=== PATIENT | female | born 1955 | race Hispanic/Latino ===

== ENCOUNTER 2019-10-24 14:59 | Inpatient (IN) | payer OTHER ==
[~2019-10-24] VITALS: Ht 162.6 cm; Wt 61.7 kg
[2019-10-24 15:26] LABS: BASOPHILS % (AUTO) 1.3 % (0.0-5.0); EOSINOPHILS % (AUTO) 3.7 % (0.0-8.0); HEMATOCRIT 39.3 % (36-48); LYMPHOCYTES % (AUTO) 18.4 % (21.0-51.0); MEAN CORPUSCULAR HEMOGLOBIN 32.8 pg (27.0-33.0); MEAN CORPUSCULAR HGB CONC 33.3 g/dL (32.0-36.0); MEAN CORPUSCULAR VOLUME 98.5 fL (79-99); MONOCYTES % (AUTO) 9.2 % (3.0-13.0); NEUTROPHILS % (AUTO) 67.2 % (40.0-77.0); PLATELET COUNT (AUTO) 163 K/uL (130-400); RED BLOOD CELL COUNT(AUTO) 3.99 MIL/uL (4.00-5.50); RED CELL DISTRIBUTION WIDTH 16.7 % (11.0-15.5); WHITE BLOOD COUNT (AUTO) 5.4 K/uL (4.8-10.8)
[2019-10-24 15:41] LABS: CREATININE 1.6 mg/dL (0.5-1.5); POTASSIUM 3.3 mmol/L (3.5-5.1)
[2019-10-24 15:44] LABS: INR 1.12 (0.85-1.15); PARTIAL THROMBOPLASTIN TIME 23.8 SEC (26.3-35.5); PROTHROMBIN TIME 11.7 SEC (9.6-11.6)
[2019-10-24 15:45] LABS: ALBUMIN 2.8 g/dL (3.5-5.0); BILIRUBIN,TOTAL 1.7 mg/dL (0.2-1.0); TOTAL PROTEIN, SERUM 6.2 g/dL (6.0-8.3)
[2019-10-24] MEDS ORDERED: FUROSEMIDE 10 MG/ML 4ML VIAL ONE (16:15)
[2019-10-24] MEDS ORDERED: POTASSIUM CHLORIDE 20 MEQ ERTAB PO ONE (16:56)
[2019-10-24] MEDS ORDERED: HYDRALAZINE HCL 20 MG/ML VIAL IV PRN (19:15)
[2019-10-24] MEDS ORDERED: ACETAMINOPHEN 325 MG TAB PO PRN ×2 (19:15)
[2019-10-24] MEDS ORDERED: ONDANSETRON HCL 4 MG/2 ML VIAL IV PRN (19:15)
[2019-10-24] MEDS ORDERED: FUROSEMIDE 10 MG/ML 2ML VIAL IVP SCH (21:00)
[2019-10-24] MEDS ORDERED: FAMOTIDINE/PF 20 MG/2 ML VIAL IV ONE (21:35)
[2019-10-24 21:57] LABS: TROPONIN I 0.11 ng/mL (0.00-0.06)
[2019-10-25 04:02] LABS: BASOPHILS % (AUTO) 1.4 % (0.0-5.0); EOSINOPHILS % (AUTO) 3.6 % (0.0-8.0); LYMPHOCYTES % (AUTO) 17.3 % (21.0-51.0); MEAN CORPUSCULAR HEMOGLOBIN 33.3 pg (27.0-33.0); MEAN CORPUSCULAR HGB CONC 34.1 g/dL (32.0-36.0); MEAN CORPUSCULAR VOLUME 97.5 fL (79-99); MONOCYTES % (AUTO) 9.6 % (3.0-13.0); NEUTROPHILS % (AUTO) 67.9 % (40.0-77.0); PLATELET COUNT (AUTO) 153 K/uL (130-400); RED CELL DISTRIBUTION WIDTH 16.5 % (11.0-15.5)
[2019-10-25 04:33] LABS: B-TYPE NATRIURETIC PEPTIDE 3280 pg/mL (0-100)
[2019-10-25 04:37] LABS: CREATININE 1.5 mg/dL (0.5-1.5); POTASSIUM 3.2 mmol/L (3.5-5.1); TROPONIN I 0.08 ng/mL (0.00-0.06)
[2019-10-25] MEDS ORDERED: FUROSEMIDE 10 MG/ML 4ML VIAL ONE (09:14)
[2019-10-25] MEDS ORDERED: ENOXAPARIN SODIUM 30 MG/0.3 ML SQ ONE (09:14)
[2019-10-25] MEDS ORDERED: FAMOTIDINE/PF 20 MG/2 ML VIAL IV ONE (09:15)
[2019-10-25 10:30] LABS: TROPONIN I 0.07 ng/mL (0.00-0.06)
--- NOTE | 2019-10-25 11:48 | NUR ---
INITIAL SAW TP I ED RM 10, W DAUGHTER AT BEDSIDE, PT LIVES ALONE, IS INPD, NO DME/PROV/HH SERVICES GOES TO [facility] FOR VISITS AND MEDS; WAS SENT FROM THERE YESTERDAY FOR EVALUATION OF CHF. DAUGHTER MUNDO AUGUSTINE IS HER CONTACT AND WILL PROVIDE TRANSPORT HOME Addendum: 10/25/19 at 2049 by TUNDE ORR RN CM Amended: Links added.
[2019-10-25] MEDS: ENOXAPARIN SODIUM 30 MG/0.3 ML SQ SCH (21:21)
[2019-10-25] MEDS: FAMOTIDINE/PF 20 MG/2 ML VIAL IV SCH (21:21)
[2019-10-25 21:32] VITALS: BP 129/74
[2019-10-25 22:14] LABS: BASOPHILS % (AUTO) 1.2 % (0.0-5.0); EOSINOPHILS % (AUTO) 2.5 % (0.0-8.0); HEMATOCRIT 39.5 % (36-48); LYMPHOCYTES % (AUTO) 15.4 % (21.0-51.0); MEAN CORPUSCULAR HEMOGLOBIN 33.1 pg (27.0-33.0); MEAN CORPUSCULAR HGB CONC 33.4 g/dL (32.0-36.0); MONOCYTES % (AUTO) 7.4 % (3.0-13.0); NEUTROPHILS % (AUTO) 73.1 % (40.0-77.0); PLATELET COUNT (AUTO) 158 K/uL (130-400); RED BLOOD CELL COUNT(AUTO) 3.99 MIL/uL (4.00-5.50); RED CELL DISTRIBUTION WIDTH 16.8 % (11.0-15.5); WHITE BLOOD COUNT (AUTO) 5.6 K/uL (4.8-10.8)
[2019-10-25 22:21] LABS: CREATININE 1.7 mg/dL (0.5-1.5); MAGNESIUM 1.7 mg/dL (1.80-2.40); POTASSIUM 3.8 mmol/L (3.5-5.1)
[2019-10-25] MEDS ORDERED: MAGNESIUM 2GM PREMIX 50ML 50 ML IV ONE (22:30)
[2019-10-25] MEDS ORDERED: POTASSIUM CHLORIDE 10% ELIXIR 20 MEQ/15 ML UDCUP PO PRN (22:30)
[2019-10-25] MEDS ORDERED: MAGNESIUM 2GM PREMIX 50ML 50 ML IV PRN (22:30)
[2019-10-25] MEDS ORDERED: POTASSIUM CHLORIDE 20MEQ/100ML 100 ML IV PRN (22:30)
[2019-10-25] MEDS: BUMETANIDE 0.25 MG/ML 4 ML VIAL IV SCH (22:52)
--- NOTE | 2019-10-25 22:55 | NUR ---
VTACH EPISODES TELEMETRY CALLED STATING THAT PATIENT WAS RUNNING FREQUENT EPISODES OF VTACH, UP TO 9-10 BEATS AT 2204. PATIENT JUST ARRIVED FROM ED, NO EPISODES HAD BEEN REPORTED ON TRANSFER REPORT FROM ER NURSE. PATIENT STANDING AT THE SINK UPON BEING CHECKED ON. SHE STATES SHE WAS GETTING HERSELF READY FOR BED. PATIENT STATES DIZZINESS AND WAS PROMPTED TO LAY IN BED. MAGNESIUM LEVEL, CBC, AND BMP ORDERED PER PROTOCOL. SPOKE TO SHERIFF SHANA ABOUT EVENT AT 2235. INFORMED OF RESULTS OF LABORATORY LEVELS AND PATIENTS HISTORY OF EF 15-20%. STATES PATIENT IS GOING TO HAVE THESE EPISODES FOR THE REST OF HER LIFE, TO REPLACE MAGNESIUM AND MONITOR OVER NIGHT. NO OTHER ORDERS RECEIVED. ORDERS READ BACK AND NOTED.
[2019-10-25] MEDS: CARVEDILOL 3.125 MG TABLET PO SCH (22:56)
[2019-10-25 23:53] VITALS: BP 126/77
[2019-10-26 03:45] VITALS: BP_SYST 74
[2019-10-26 04:45] LABS: BASOPHILS % (AUTO) 1.2 % (0.0-5.0); EOSINOPHILS % (AUTO) 2.8 % (0.0-8.0); HEMATOCRIT 39.9 % (36-48); LYMPHOCYTES % (AUTO) 14.5 % (21.0-51.0); MEAN CORPUSCULAR HEMOGLOBIN 32.5 pg (27.0-33.0); MEAN CORPUSCULAR HGB CONC 32.8 g/dL (32.0-36.0); MONOCYTES % (AUTO) 7.7 % (3.0-13.0); NEUTROPHILS % (AUTO) 73.6 % (40.0-77.0); PLATELET COUNT (AUTO) 156 K/uL (130-400); RED BLOOD CELL COUNT(AUTO) 4.03 MIL/uL (4.00-5.50); RED CELL DISTRIBUTION WIDTH 16.8 % (11.0-15.5)
[2019-10-26 05:39] LABS: CREATININE 1.7 mg/dL (0.5-1.5); POTASSIUM 3.7 mmol/L (3.5-5.1)
[2019-10-26] MEDS: BUMETANIDE 0.25 MG/ML 4 ML VIAL IV SCH (06:05)
[2019-10-26] MEDS: POTASSIUM CHLORIDE 20 MEQ ERTAB PO PRN (06:10)
[2019-10-26 07:20] VITALS: BP 145/89
[2019-10-26] MEDS ORDERED: LOSARTAN 50 MG TABLET PO SCH (09:00)
[2019-10-26] MEDS ORDERED: MILRINONE-D5W 20 MG/100 ML 100 ML IV SCH (09:30)
[2019-10-26] MEDS: ATORVASTATIN CALCIUM 20 MG TABLET PO SCH (09:44)
[2019-10-26] MEDS: FAMOTIDINE/PF 20 MG/2 ML VIAL IV SCH (09:45)
[2019-10-26] MEDS: CLOPIDOGREL BISULFATE 75 MG TAB PO SCH (09:45)
[2019-10-26] MEDS: ASPIRIN 81MG TAB.CHEW PO SCH (09:45)
[2019-10-26] MEDS: CARVEDILOL 3.125 MG TABLET PO SCH ×2 (09:45→20:34)
[2019-10-26] MEDS: ENOXAPARIN SODIUM 30 MG/0.3 ML SQ SCH (09:47)
[2019-10-26] MEDS: ISOSORBIDE MONO 30MG TAB SR PO SCH (09:49)
[2019-10-26] MEDS: SPIRONOLACTONE 25 MG TAB PO SCH (09:55)
[2019-10-26] MEDS: BUMETANIDE 0.25 MG/ML 10 ML 40 ML IV NR ×2 (10:27→23:26)
[2019-10-26 11:30] VITALS: BP 111/68
[2019-10-26] MEDS ORDERED: ACETAMINOPHEN 325 MG TAB PO SCH (12:00)
[2019-10-26] MEDS: INSULIN LISPRO 100 UNIT/ML 3ML SQ SCH ×5 (12:30→20:33)
--- NOTE | 2019-10-26 12:33 | NUR ---
DR. WHITE IN ROOM SPEAKING WITH PT. AND PT.'S DAUGHTERS AT BEDSIDE RE:PLAN OF CARE.
[2019-10-26] MEDS ORDERED: DRISDOL PO (14:32)
[2019-10-26] MEDS ORDERED: CARV3.1262 PO (14:32)
[2019-10-26] MEDS ORDERED: FOLI0.8T22 PO (14:32)
[2019-10-26] MEDS ORDERED: FERS325 PO (14:32)
[2019-10-26] MEDS ORDERED: ISOS30TA6 PO (14:32)
[2019-10-26] MEDS ORDERED: CLOP75TA14 PO (14:32)
[2019-10-26] MEDS ORDERED: AEC81 PO (14:32)
[2019-10-26] MEDS ORDERED: ATOR10 PO (14:32)
[2019-10-26] MEDS ORDERED: INSU100I35 SQ (14:32)
[2019-10-26 15:30] VITALS: BP 99/57
[2019-10-26] MEDS ORDERED: INSULIN LISPRO 100 UNIT/ML 3ML SQ SCH ×2 (16:30→17:00)
[2019-10-26 19:00] VITALS: BP 99/48
[2019-10-26] MEDS: INSULIN GLARGINE 100 UNITS/ML 10 ML VIAL SQ SCH (20:33)
[2019-10-26 23:00] VITALS: BP 102/58
[2019-10-27 04:00] VITALS: BP 116/64
[2019-10-27 04:29] LABS: BASOPHILS % (AUTO) 1.6 % (0.0-5.0); EOSINOPHILS % (AUTO) 6.7 % (0.0-8.0); HEMATOCRIT 36.5 % (36-48); MEAN CORPUSCULAR HEMOGLOBIN 32.4 pg (27.0-33.0); MEAN CORPUSCULAR HGB CONC 33.2 g/dL (32.0-36.0); MEAN CORPUSCULAR VOLUME 97.6 fL (79-99); MONOCYTES % (AUTO) 9.4 % (3.0-13.0); NEUTROPHILS % (AUTO) 70.1 % (40.0-77.0); PLATELET COUNT (AUTO) 154 K/uL (130-400); RED BLOOD CELL COUNT(AUTO) 3.74 MIL/uL (4.00-5.50); RED CELL DISTRIBUTION WIDTH 16.2 % (11.0-15.5); WHITE BLOOD COUNT (AUTO) 4.9 K/uL (4.8-10.8)
[2019-10-27 04:34] LABS: CREATININE 1.6 mg/dL (0.5-1.5); POTASSIUM 3.6 mmol/L (3.5-5.1)
[2019-10-27 04:45] LABS: B-TYPE NATRIURETIC PEPTIDE 2360 pg/mL (0-100)
[2019-10-27] MEDS: INSULIN LISPRO 100 UNIT/ML 3ML SQ SCH ×7 (06:27→20:28)
[2019-10-27 07:53] VITALS: BP 131/81
[2019-10-27] MEDS ORDERED: SPIR25TA6 PO (08:15)
[2019-10-27] MEDS ORDERED: TORS20TA4 PO (08:15)
[2019-10-27] MEDS ORDERED: LOSA25TA41 PO (08:20)
[2019-10-27] MEDS: LOSARTAN 50 MG TABLET PO SCH (09:51)
[2019-10-27] MEDS: SPIRONOLACTONE 25 MG TAB PO SCH (09:51)
[2019-10-27] MEDS: CLOPIDOGREL BISULFATE 75 MG TAB PO SCH (09:51)
[2019-10-27] MEDS: FAMOTIDINE/PF 20 MG/2 ML VIAL IV SCH (09:51)
[2019-10-27] MEDS: ATORVASTATIN CALCIUM 20 MG TABLET PO SCH (09:52)
[2019-10-27] MEDS: ISOSORBIDE MONO 30MG TAB SR PO SCH (09:52)
[2019-10-27] MEDS: CARVEDILOL 3.125 MG TABLET PO SCH ×2 (09:52→20:37)
[2019-10-27] MEDS: ASPIRIN 81MG TAB.CHEW PO SCH (09:52)
[2019-10-27] MEDS: ENOXAPARIN SODIUM 30 MG/0.3 ML SQ SCH (09:53)
[2019-10-27 12:16] VITALS: BP 120/77
[2019-10-27 16:17] VITALS: BP 114/62
[2019-10-27] MEDS: POTASSIUM CHLORIDE 20 MEQ ERTAB PO PRN (17:48)
[2019-10-27 19:33] VITALS: BP 112/56
[2019-10-27] MEDS: INSULIN GLARGINE 100 UNITS/ML 10 ML VIAL SQ SCH (20:43)
[2019-10-27 23:41] VITALS: BP 128/71
[2019-10-28 03:56] VITALS: BP 137/75
[2019-10-28 04:55] LABS: BASOPHILS % (AUTO) 1.1 % (0.0-5.0); EOSINOPHILS % (AUTO) 5.2 % (0.0-8.0); HEMATOCRIT 37.4 % (36-48); LYMPHOCYTES % (AUTO) 15.9 % (21.0-51.0); MEAN CORPUSCULAR HEMOGLOBIN 32.6 pg (27.0-33.0); MEAN CORPUSCULAR HGB CONC 33.2 g/dL (32.0-36.0); MEAN CORPUSCULAR VOLUME 98.4 fL (79-99); MONOCYTES % (AUTO) 12.7 % (3.0-13.0); NEUTROPHILS % (AUTO) 64.9 % (40.0-77.0); PLATELET COUNT (AUTO) 161 K/uL (130-400); RED CELL DISTRIBUTION WIDTH 16.6 % (11.0-15.5); WHITE BLOOD COUNT (AUTO) 4.6 K/uL (4.8-10.8)
[2019-10-28 05:16] LABS: CREATININE 1.5 mg/dL (0.5-1.5); MAGNESIUM 1.9 mg/dL (1.80-2.40); POTASSIUM 3.4 mmol/L (3.5-5.1)
[2019-10-28] MEDS: INSULIN LISPRO 100 UNIT/ML 3ML SQ SCH ×7 (05:47→20:30)
[2019-10-28 07:20] VITALS: BP 134/80
[2019-10-28] MEDS: TORSEMIDE 20 MG TAB PO SCH (10:10)
[2019-10-28] MEDS: LOSARTAN 50 MG TABLET PO SCH (10:10)
[2019-10-28] MEDS: ISOSORBIDE MONO 30MG TAB SR PO SCH (10:10)
[2019-10-28] MEDS: CLOPIDOGREL BISULFATE 75 MG TAB PO SCH (10:10)
[2019-10-28] MEDS: ASPIRIN 81MG TAB.CHEW PO SCH (10:11)
[2019-10-28] MEDS: ATORVASTATIN CALCIUM 20 MG TABLET PO SCH (10:11)
[2019-10-28] MEDS: CARVEDILOL 3.125 MG TABLET PO SCH ×2 (10:11→20:31)
[2019-10-28] MEDS: SPIRONOLACTONE 25 MG TAB PO SCH (10:11)
[2019-10-28] MEDS: ENOXAPARIN SODIUM 30 MG/0.3 ML SQ SCH (10:12)
[2019-10-28] MEDS: FAMOTIDINE/PF 20 MG/2 ML VIAL IV SCH (10:23)
[2019-10-28 11:20] VITALS: BP 119/74
[2019-10-28 15:00] VITALS: BP 115/60
--- NOTE | 2019-10-28 16:30 | NUR ---
Home O2; Informed by primary nurse that pt was going to need home O2 @ dc. Self pay echevarria list provided to pt and dtr. Information reviewed w pt and dtr, informed them that Md was recommending O2 be setup prior to dc home. Per pt her dtr Sherrie Cox is the one that will help coordinate O2 but is not here @ the moment. CM to continue to follow.
[2019-10-28 20:03] VITALS: BP 138/63
[2019-10-28] MEDS: INSULIN GLARGINE 100 UNITS/ML 10 ML VIAL SQ SCH (20:30)
[2019-10-28 23:33] VITALS: BP 112/65
[2019-10-29 04:34] VITALS: BP 123/63
[2019-10-29] MEDS: INSULIN LISPRO 100 UNIT/ML 3ML SQ SCH ×6 (05:38→16:54)
[2019-10-29 07:30] VITALS: BP 128/72
[2019-10-29] MEDS: SPIRONOLACTONE 25 MG TAB PO SCH (09:54)
[2019-10-29] MEDS: FAMOTIDINE/PF 20 MG/2 ML VIAL IV SCH (09:54)
[2019-10-29] MEDS: ATORVASTATIN CALCIUM 20 MG TABLET PO SCH (09:54)
[2019-10-29] MEDS: ASPIRIN 81MG TAB.CHEW PO SCH (09:54)
[2019-10-29] MEDS: TORSEMIDE 20 MG TAB PO SCH (09:54)
[2019-10-29] MEDS: CLOPIDOGREL BISULFATE 75 MG TAB PO SCH (09:54)
[2019-10-29] MEDS: LOSARTAN 50 MG TABLET PO SCH (09:55)
[2019-10-29] MEDS: ISOSORBIDE MONO 30MG TAB SR PO SCH (09:55)
[2019-10-29] MEDS: CARVEDILOL 3.125 MG TABLET PO SCH (09:55)
[2019-10-29] MEDS: ENOXAPARIN SODIUM 30 MG/0.3 ML SQ SCH (09:56)
[2019-10-29 11:30] VITALS: BP 135/73
--- NOTE | 2019-10-29 16:22 | NUR ---
DR JEFFERSON SPOKE WITH DAUGHTER THAT SHE HAS AND O2 CONCENTRATOR AT HOME AND THAT SHE'S BEEN OF THE OXYGEN ALL DAY AND IS SAT'S @ 93%. DAUGHTER REASSURED THAT SHE WOULD BE FINE FROM HERE TO HOME AND WILL PLACE ON OXYGEN SOON THEY ARRIVE HOME. SAID IT WAS OK TO DISCHARGE HOME WITH DAUGHTER'S GUARANTEE THAT SHE WOULD PLACE HER ON OXYGEN SOON THEY GET HOME. Addendum: 10/29/19 at 1627 by KENDELL ROGERS RN RN Amended: Links added.
== END 2019-10-29 18:45 | disposition home or self-care (01) | DRG 291 ==
LOC: EDH 14:59 → EDHIP 15:00 → 2AH 10-25 21:12
PROVIDERS: ADMIT Internal Medicine; ATTEND Internal Medicine
DX: I13.0 Hypertensive heart and chronic kidney disease with heart failure and stage 1 through stage 4 chronic kidney disease, or unspecified chronic kidney disease (principal); I50.23 Acute on chronic systolic (congestive) heart failure; I34.0 Nonrheumatic mitral (valve) insufficiency; E11.22 Type 2 diabetes mellitus with diabetic chronic kidney disease; E78.5 Hyperlipidemia, unspecified; E83.42 Hypomagnesemia; E87.6 Hypokalemia; G47.00 Insomnia, unspecified; I25.10 Atherosclerotic heart disease of native coronary artery without angina pectoris; I25.2 Old myocardial infarction; I25.5 Ischemic cardiomyopathy; K59.00 Constipation, unspecified; N18.3 Chronic kidney disease, stage 3 (moderate); Z79.899 Other long term (current) drug therapy; Z91.19 Patient's noncompliance with other medical treatment and regimen; Z99.81 Dependence on supplemental oxygen; Z60.2 Problems related to living alone
CPT/HCPCS: 36415; 71045; 71046; 80048; 80053; 82550; 82947; 82948; 83735; 83874; 83880; 84100; 84484; 85025; 85610; 85730; 93005; 94760; G0378; J1650; J1940; J2260; J3475; J3490

== ENCOUNTER 2020-04-29 18:30 | Inpatient (IN) | payer OTHER ==
[~2020-04-29 18:30] MED LIST: AEC81 PO; ATOR10 PO; CARV3.1262 PO; CLOP75TA14 PO; DRISDOL PO; FERS325 PO; FOLI0.8T22 PO; INSU100I35 SQ; ISOS30TA6 PO; LOSA25TA41 PO; SPIR25TA6 PO; TORS20TA4 PO
[2020-04-29 20:02] LABS: APPEARANCE,URINE CLOUDY (CLEAR); BILIRUBIN,URINE MODERATE (NEGATIVE); GLUCOSE, URINE (UA) 100 mg/dL (NEGATIVE); KETONES,URINE NEGATIVE (NEGATIVE); LEUKOCYTE ESTERASE ,URINE LARGE (NEGATIVE); NITRATE,URINE NEGATIVE (NEGATIVE); OCCULT BLOOD,URINE LARGE (NEGATIVE); PH,URINE 8.5 (5.0-8.0); PROTEIN,URINE 100 mg/dL (NEGATIVE)
[2020-04-29 20:03] LABS: COLOR,URINE DARK YELLOW (YELLOW)
[2020-04-29 20:03] LABS: BASOPHILS % (AUTO) 0.7 % (0.0-5.0); EOSINOPHILS % (AUTO) 0.2 % (0.0-8.0); HEMATOCRIT 30.1 % (36-48); MEAN CORPUSCULAR HEMOGLOBIN 33.4 pg (27.0-33.0); MEAN CORPUSCULAR HGB CONC 34.6 g/dL (32.0-36.0); MEAN CORPUSCULAR VOLUME 96.8 fL (79-99); MONOCYTES % (AUTO) 3.2 % (3.0-13.0); NEUTROPHILS % (AUTO) 92.5 % (40.0-77.0); NUCLEATED RED BLOOD CELLS 0.9 % (0.0-0.19); PLATELET COUNT (AUTO) 128 K/uL (130-400); RED BLOOD CELL COUNT(AUTO) 3.11 MIL/uL (4.00-5.50); RED CELL DISTRIBUTION WIDTH 17.4 % (11.0-15.5); WHITE BLOOD COUNT (AUTO) 5.4 K/uL (4.8-10.8)
[2020-04-29 20:16] LABS: WBC,URINE 26-50 /HPF (0-1)
[2020-04-29 20:17] LABS: BACTERIA,URINE Moderate /HPF (None Seen); SQUAMOUS EPITHELIAL CELL,UR Rare /HPF (0-2)
[2020-04-29 20:18] LABS: INR 1.33 (0.85-1.15); PARTIAL THROMBOPLASTIN TIME 34.2 SEC (26.3-35.5); PROTHROMBIN TIME 14.2 SEC (9.6-11.6)
[2020-04-29] MEDS ORDERED: SODIUM CHLORIDE 0.9% 1000ML 1,000 ML IV ONE (20:28)
[2020-04-29 20:38] LABS: ALBUMIN 1.5 g/dL (3.5-5.0); BILIRUBIN,TOTAL 12.3 mg/dL (0.2-1.0); CREATININE 1.8 mg/dL (0.5-1.5); POTASSIUM 4.2 mmol/L (3.5-5.1); TOTAL PROTEIN, SERUM 6.2 g/dL (6.0-8.3)
[2020-04-29] MEDS ORDERED: ZOSYN 3.375GM+NS 50ML 50 ML IV ONE (21:11)
[2020-04-29] MEDS ORDERED: ALBUMIN (HUMAN) 25% 200 ML IV ONE (21:26)
[2020-04-29] MEDS ORDERED: GLUCAGON 1MG KIT 1 MG ML IM PRN (22:30)
[2020-04-29] MEDS ORDERED: ALBUTEROL INHALER 90MCG/INH IH SCH (22:30)
[2020-04-29] MEDS ORDERED: DEXTROSE 50%-WATER 50 ML DISP.SYRIN IV PRN (22:30)
[2020-04-29] MEDS ORDERED: AZITHROMYCIN 500MG+NS 250ML 250 ML IV SCH (22:30)
[2020-04-29] MEDS ORDERED: ALBUMIN (HUMAN) 25% 50 ML IV ONE ×2 (22:30→23:44)
[2020-04-29] MEDS ORDERED: ALBUTEROL INHALER 90MCG/INH IH PRN (22:30)
[2020-04-29] MEDS ORDERED: DiphenhydrAMINE HCL 50 MG/ML VIAL IV PRN (22:45)
[2020-04-29] MEDS ORDERED: LACTULOSE 20 GM/30 ML UDCUP PO SCH (22:45)
[2020-04-29] MEDS ORDERED: ONDANSETRON HCL 4 MG/2 ML VIAL IV PRN (22:45)
[2020-04-29] MEDS ORDERED: NITROGLYCERIN 0.4 MG SL TAB SL PRN (22:45)
[2020-04-29] MEDS ORDERED: ERGOCALCIFEROL (VITAMIN D2) 50,000 UNIT CAPSULE PO ONE (22:45)
[2020-04-29] MEDS ORDERED: ACETAMINOPHEN 650 MG SUPPOSITORY RC PRN ×2 (22:45)
[2020-04-29] MEDS ORDERED: FUROSEMIDE 10 MG/ML 2ML VIAL IV SCH (23:00)
[2020-04-29 23:06] LABS: % IRON SATURATION 10.1 % (22-44)
[2020-04-29 23:22] LABS: AMYLASE 15 U/L (25-115); LACTATE DEHYDROGENASE 422 U/L (81-234)
[2020-04-29 23:37] LABS: LIPASE < 50 U/L (114-286)
[2020-04-29 23:42] LABS: INR 1.39 (0.85-1.15); PARTIAL THROMBOPLASTIN TIME 39.4 SEC (26.3-35.5); PROTHROMBIN TIME 14.8 SEC (9.6-11.6)
[2020-04-29] MEDS ORDERED: ALBUTEROL INHALER 90MCG/INH IH ONE (23:43)
[2020-04-29] MEDS ORDERED: AZITHROMYCIN 500MG+NS 250ML 250 ML IV ONE (23:43)
[2020-04-29] MEDS ORDERED: FUROSEMIDE 10 MG/ML 2ML VIAL ONE (23:43)
[2020-04-29 23:46] LABS: CREATINE KINASE, TOTAL 100 U/L (21-232); MYOGLOBIN 61 ng/mL (10-92); TROPONIN I < 0.04 ng/mL (0.00-0.06)
[2020-04-30] MEDS ORDERED: INSULIN HUMULIN R 100 UNIT/ML 3ML SQ SCH
[2020-04-30] MEDS ORDERED: NOREPINEPHRINE 4MG/NS 250ML 0 ML IV ONE (01:22)
[2020-04-30] MEDS ORDERED: EPINEPHRINE 1 MG/ML 30ML VIAL IJ ONE (01:42)
[2020-04-30 01:44] LABS: ABG BASE EXCESS -14.2 mmol/L (-2.0-3.0); ABG HCO3 11.9 mmol/L (21.0-28.0); ABG OXYGEN SATURATION 97.9 % (95.0-99.0); ABG PCO2 29 mmHg (32-45)
[2020-04-30] MEDS ORDERED: SODIUM CHLORIDE 0.9% 250 ML IV ONE (01:44)
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
[2020-04-30] MEDS ORDERED: ZINC SULFATE 220 CAPSULE PO SCH (09:00)
[2020-04-30] MEDS ORDERED: ASCORBIC ACID 500 MG TAB PO SCH (09:00)
[2020-04-30] MEDS ORDERED: FAMOTIDINE/PF 20 MG/2 ML VIAL IV SCH (09:00)
[2020-04-30] MEDS ORDERED: METHYLPREDNISOLONE SOD SUCC 40MG/ML 1ML IVP SCH (09:00)
[2020-04-30] MEDS ORDERED: ZOSYN 3.375GM+NS 50ML 50 ML IV SCH (22:30)
== END 2020-04-30 01:57 | disposition expired | DRG 871 ==
LOC: EDH 18:30 → EDHIP 18:31
PROVIDERS: ADMIT Internal Medicine; ATTEND Internal Medicine
PROC: 5A12012 Performance of Cardiac Output, Single, Manual (ICD-10-PCS; principal; 2020-04-30)
PROC: 0BH17EZ Insertion of Endotracheal Airway into Trachea, Via Natural or Artificial Opening (ICD-10-PCS; 2020-04-30)
DX: A41.9 Sepsis, unspecified organism (principal); I50.23 Acute on chronic systolic (congestive) heart failure; J18.9 Pneumonia, unspecified organism; J96.01 Acute respiratory failure with hypoxia; R65.21 Severe sepsis with septic shock; I13.0 Hypertensive heart and chronic kidney disease with heart failure and stage 1 through stage 4 chronic kidney disease, or unspecified chronic kidney disease; N17.9 Acute kidney failure, unspecified; N39.0 Urinary tract infection, site not specified; D69.6 Thrombocytopenia, unspecified; E78.5 Hyperlipidemia, unspecified; I25.10 Atherosclerotic heart disease of native coronary artery without angina pectoris; I25.5 Ischemic cardiomyopathy; I34.0 Nonrheumatic mitral (valve) insufficiency; L89.152 Pressure ulcer of sacral region, stage 2; N18.3 Chronic kidney disease, stage 3 (moderate); I46.9 Cardiac arrest, cause unspecified; Z20.828 Contact with and (suspected) exposure to other viral communicable diseases
CPT/HCPCS: 31500; 36415; 36600; 71045; 80053; 81001; 82140; 82150; 82435; 82550; 82607; 82728; 82803; 82947; 83540; 83550; 83605; 83615; 83690; 83735; 83874; 83880; 84132; 84145; 84295; 84484; 85018; 85025; 85378; 85610; 85730; 86140; 87040; 87077; 87088; 87186; 92950; 93005; 99291; G0378; J0171; J0456; J1940; J2543; J3490; J7030; J7050; P9046; P9047